=== PATIENT | female | born 1960 | race Caucasian/White ===

== ENCOUNTER 2018-10-01 06:40 | Day surgery (SDC) | payer OTHER ==
[2018-10-01] VITALS (11 sets, daily range): BP systolic 117–140; BP diastolic 61–71; PULSE 58–82; RESP 13–22; Ht 160 cm; Wt 80.8 kg
[~2018-10-01] VITALS: Ht 160 cm; Wt 80.8 kg
[~2018-10-01 06:40] MED LIST: HYDR12.58 PO
[2018-10-01] MEDS ORDERED: DESFLURANE 15 MIN ONE (07:00)
[2018-10-01] MEDS ORDERED: SUGAMMADEX SODIUM 200 MG/2 ML VIAL IV ONE (07:00)
[2018-10-01] MEDS ORDERED: CEFAZOLIN 2 GM/50 ML (PMX) 50 ML IVPB ONE (07:00)
[2018-10-01] MEDS ORDERED: SOD CHLORIDE 0.9% 1,000 ML IV SCH (07:00)
[2018-10-01] MEDS ORDERED: HYDR25TA6 PO (07:17)
[2018-10-01] MEDS ORDERED: GLIP10TA14 PO (07:17)
[2018-10-01] MEDS ORDERED: SIMV20TA PO (07:17)
[2018-10-01] MEDS ORDERED: MTF1000T PO (07:17)
[2018-10-01] MEDS ORDERED: PROPOFOL 20 ML ONE (08:39)
[2018-10-01] MEDS ORDERED: ROCURONIUM 50 MG INJ ONE (08:39)
[2018-10-01] MEDS ORDERED: MIDAZOLAM 1 MG/ML 2 ML INJ ONE (08:39)
[2018-10-01] MEDS ORDERED: ROPIVACAINE 0.5 % 30 ML VIAL ONE (08:39)
[2018-10-01] MEDS ORDERED: LIDOCAINE 2% (SDV) 5 ML INJ ONE (08:39)
[2018-10-01] MEDS ORDERED: DEXAMETHASONE 4 MG/ML 5 ML INJ ONE ×2 (08:43→09:36)
--- NOTE | 2018-10-01 09:16 | PREAC ---
Date/Time of Note Date/Time of Note DATE: 10/01/18 TIME: 09:15 Anesthesia Eval and Record Evaluation Time Pre-Procedure Interview DATE: 10/01/18 TIME: 09:15 Age 58 Sex female NPO: 8 hrs Preoperative diagnosis gallstones Planned procedure lap choly Past Medical History Past Medical History: Includes Cardio: HTN, Dyslipidemia Endo: Diabetes Surgery & Anesthesia Issues No known issue Meds Anticoagulation: No Beta Amna within 24 hr: No Reason Beta Amna not given: Pt. not on B-Amna Reported Medications Hydrochlorothiazide* (Hydrochlorothiazide*) 25 Mg Tab, 25 MG PO DAILY, #30 TAB 10/01/18 Metformin* (Glucophage*) 1,000 Mg Tablet, 1000 MG PO BID WITH MEALS, #30 TAB 10/01/18 Glipizide* (Glipizide*) 10 Mg Tablet, 10 MG PO BID, TAB 10/01/18 Simvastatin* (Zocor*) 20 Mg Tablet, 20 MG PO QHS, #30 TAB 10/01/18 Discontinued Reported Medications Hydrochlorothiazide* (Hydrochlorothiazide*) 12.5 Mg Tablet, 12.5 MG PO DAILY, TAB 03/06/14 Current Medications Sodium Chloride 1,000 ml @ 75 mls/hr [id number] IV Last administered on 10/01/18at 07:24; Admin Dose 75 MLS/HR; Start 10/01/18 at 07:00; Stop 10/01/18 at 20:19 Meds reviewed: Yes Allergies Coded Allergies: No Known Allergy (Unverified , 10/01/18) Allergies Reviewed: Yes Labs/Studies Labs Reviewed: Reviewed by anesthesiologist test: N/A Pre-procedure Exam Last vitals Vital Signs Date Temp Pulse Resp B/P (MAP) Pulse Ox O2 O2 Flow FiO2 Time Delivery Rate 10/01/18 97.7 58 18 140/71 98 Room Air 07:20 (94) Airway: Adequate mouth opening, Adequate thyromental dist Mallampati: Mallampati IV Teeth: Normal Lung: Normal Heart: Normal ASA Physical Status ASA physical status: 3 Emergency: None Pre-operative Attestations Prior to commencing anesthesia and surgery, the patient was re-evaluated, there was verification of: *The patient's identity *The results of appropriate recent lab work and preoperative vital signs *The above evaluation not changing prior to induction *Anesthetic plan, risk benefits, alternative and complications discussed with patient/family; questions answered; patient/family understands, accepts and wishes to proceed. JUAN AMADOR DO Oct 01, 2018 09:16
[2018-10-01] MEDS ORDERED: LABETALOL HCL 20MG INJ IV PRN (09:30)
[2018-10-01] MEDS ORDERED: ONDANSETRON 4 MG INJ IV PRN (09:30)
[2018-10-01] MEDS ORDERED: HYDROmorphONE 1 MG/5 ML IV SYRINGE IV PRN ×3 (09:30)
[2018-10-01] MEDS ORDERED: ONDANSETRON 4 MG INJ ONE (09:36)
[2018-10-01] MEDS ORDERED: CEFAZOLIN 1 GM INJ ONE (09:36)
--- NOTE | 2018-10-01 10:21 | PAC ---
Date/Time of Note Date/Time of Note DATE: 10/01/18 TIME: 10:21 Post-Anesthesia Notes Post-Anesthesia Note Last documented vital signs Vital Signs Date Temp Pulse Resp B/P (MAP) Pulse Ox O2 O2 Flow FiO2 Time Delivery Rate 10/01/18 98 90 20 135/65 98 Room Air 1022 Activity: WNL Respiratory function: WNL Cardiovascular function: WNL Mental status: Baseline Pain reasonably controlled: Yes Hydration appropriate: Yes Nausea/Vomiting absent: Yes JUAN AMADOR DO Oct 01, 2018 10:21
--- NOTE | 2018-10-01 10:22 | OPR ---
Date/Time of Note Date/Time of Note DATE: 10/01/18 TIME: 10:16 Operative Report Procedure Date: Oct 01, 2018 Preoperative Diagnosis symptomatic gallstones Postoperative Diagnosis same Operation/Procedure Performed laparoscopic cholecystectomy Surgeon see signature line Athletic Director Marcello Hayes Anesthesia Type: general Estimated Blood Loss: 0 - 10 ml's Transfusion none Specimen gallbladder Grafts/Implants none Complications none Pt Condition Post Procedure: stable Indications This is a 58-year-old female with some tender gallstones. She required surgical excision of her gallbladder. Risks alternatives benefits and percent were discussed the patient. Patient expressed understanding and consents to the operation. Procedure Description Patient is taken to the OR and prepped and draped in usual sterile fashion. Surgical time was performed. IV antibiotics were given. Due to her prior surgical incision in the infraumbilical region supra umbilical midline incision was made with a 15 blade. Dissection with cautery was carried onto the fascia. 0 Vicryl stay sutures were placed on either side of the midline. The midline was opened and a [place] trochars was introduced. Pneumoperitoneum was established. Midepigastric 12 mm optical trochars placed under direct position. Right upper quadrant upper flank 5 mm optical trochars placed under direct position. Upon initial inspection there is adhesions of the gallbladder and multiple adhesions to the liver and the dome of the liver to the anterior abdominal wall. Some of these adhesions were taken down to allow mobilization of the gallbladder. The gallbladder was grasped the fundus and retracted in a lateral cephalad direction. Hook cautery was used to dissect the gallbladder laterally this allowed mobilization of the cystic duct and cystic artery. The critical view was established with blunt dissection of the cystic duct with [place] graspers. T the gallbladder appears hydropic and tense and some of the contents were drained. There is a hydropic gallbladder with clear fluid draining that was suctioned out. This allowed better mobilization of the gallbladder. The cystic duct appeared thickened on closer inspection and was divided with a 35 mm echelon vascular stapler. The staple line was then reinforced with clips. The cystic artery was divided to close proximally clipped distal and the division was performed laparoscopic scissors. The gallbladder seen in the gallbladder bed. The gallbladder was retrieved using Endo Catch bag. Minimal suction irrigation was used. Ports removed under direct physician. Supraumbilical midline incision was closed with a running 0 Vicryl. Skin was closed in all port sites with skin thong. A tap block was provided by the anesthesiologist. Dry dressings were applied. Ana Maria COELLO Oct 01, 2018 10:21
[2018-10-01] MEDS ORDERED: HYDROCODONE/APAP (5/325) TAB PO ONE (10:30)
[2018-10-01] MEDS: HYDROmorphONE 1 MG/5 ML IV SYRINGE IV PRN ×2 (10:39→11:02)
== END 2018-10-01 11:50 | disposition home or self-care (01) ==
LOC: SDS 06:40
PROVIDERS: ATTEND Surgery
DX: K80.20 Calculus of gallbladder without cholecystitis without obstruction (principal); I10 Essential (primary) hypertension; E78.5 Hyperlipidemia, unspecified; E11.9 Type 2 diabetes mellitus without complications
CPT/HCPCS: 47562; 82962; J0690; J1100; J1170; J2250; J2405; J2795; J3010; Z7610; 88304